=== PATIENT | female | born 1960 | race Caucasian/White ===

== ENCOUNTER 2024-07-14 07:31 | Emergency (ER) | payer MEDICARE, MEDICAID ==
[2024-07-14] MEDS ORDERED: Sodium Chloride 0.9% 10 ML Syringe FLUSH PRN (08:15)
[2024-07-14 08:27] LABS: BASOPHILS ABSOLUTE AUTO 0.03 K/uL (0.00-0.10); BASOPHILS PERCENT AUTO 0.5 % (0.1-1.3); EOSINOPHILS ABSOLUTE AUTO 0.24 K/uL (0.00-0.40); HEMATOCRIT 39.2 % (34.3-46.0); HEMOGLOBIN 14.1 g/dL (11.2-15.5); IMMATURE GRAN PERCENT AUTO 0.2 % (0.0-0.7); LYMPHOCYTES ABSOLUTE AUTO 1.08 K/uL (0.8-3.3); LYMPHOCYTES PERCENT AUTO 18.1 % (11.4-47.7); MEAN CORPUSCULAR HEMOGLOBIN 31.3 pg (31.6-35.5); MEAN CORPUSCULAR VOLUME 87.1 fL (81.4-99.0); MONOCYTES ABSOLUTE AUTO 0.58 K/uL (0.20-0.90); MONOCYTES PERCENT AUTO 9.7 % (3.3-12.6); NEUTROPHILS ABSOLUTE AUTO 4.04 K/uL (1.0-7.6); NEUTROPHILS PERCENT AUTO 67.5 % (40.0-78.1); PLATELET COUNT,PLT 222 K/uL (130-375)
[2024-07-14 08:32] LABS: IMMATURE GRAN ABSOLUTE AUTO 0.01 K/uL (0.00-0.23)
[2024-07-14] MEDS: Ondansetron 4 MG/2 ML SDV IVPUSH ONE (08:32)
[2024-07-14] MEDS: Sodium Chloride 0.9% 1,000 ML IV STA (08:32)
[2024-07-14] MEDS: fentaNYL 100 MCG/2 ML SDV IVPUSH ONE (08:33)
[2024-07-14 08:48] LABS: A/G RATIO 0.9 (1.2-2.2); ALANINE AMINOTRANSFERASE,ALT 89 U/L (12-78); ALBUMIN 3.6 g/dL (3.4-5.0); ALKALINE PHOSPHATASE 116 U/L (46-116); ASPARTATE AMNIOTRANSFERASE,AST 63 U/L (15-37); BILIRUBIN TOTAL 0.5 mg/dL (0.2-1.0); BLOOD UREA NITROGEN,BUN 12 mg/dL (7-18); CALCIUM 8.6 mg/dL (8.5-10.1); CARBON DIOXIDE,CO2 25 mmol/L (21-32); CHLORIDE,CL 100 mmol/L (100-108); CREATININE 0.8 mg/dL (0.6-1.0); EST CRCL DRUG DOSING (CG) 63.09 mL/min; ESTIMATED GFR 82 mL/min (>60); GLUCOSE RANDOM 99 mg/dL (74-106); POTASSIUM,K 3.8 mmol/L (3.6-5.2); PROTEIN TOTAL,TP 7.6 g/dL (6.4-8.2); SODIUM,NA 136 mmol/L (140-148)
[2024-07-14 08:53] LABS: ANION GAP 14.8 mmol/L (5.0-14.0)
[2024-07-14] MEDS: Sodium Chloride 0.9% 10 ML Syringe FLUSH ONE ×2 (09:25→11:44)
[2024-07-14] MEDS: Iopamidol 612 MG/ML 100 ML Bottle IV PRN (09:25)
[2024-07-14] MEDS: Sodium Chloride 0.9% 80 ML IV SCH ×2 (09:25→11:44)
[2024-07-14] MEDS: HYDROmorphone 1 MG/ML Syringe IVPUSH ONE ×2 (09:40→10:57)
[2024-07-14 10:30] LABS: APPEARANCE,URINE CLEAR (CLEAR); BILIRUBIN,URINE NEGATIVE (NEGATIVE); COLOR,URINE YELLOW (YELLOW); GLUCOSE,URINE NEGATIVE (NEGATIVE); KETONES,URINE NEGATIVE (NEGATIVE); LEUKOCYTE ESTERASE,URINE NEGATIVE (NEGATIVE); NITRITE,URINE NEGATIVE (NEGATIVE); OCCULT BLOOD,URINE NEGATIVE (NEGATIVE); PROTEIN,URINE NEGATIVE (NEGATIVE); UROBILINOGEN,URINE 0.2 EU/dL (0.2-1.0)
[2024-07-14 10:36] LABS: BACTERIA,URINE NOT SEEN; EPITHELIAL CELLS,URINE OCCASIONAL; RBC,URINE NOT SEEN (0-5); WBC,URINE NOT SEEN (0-5)
[2024-07-14] MEDS: Iopamidol 612 MG/ML 100 ML Bottle IV SCH (11:44)
== END 2024-07-14 13:13 | disposition home or self-care (01) ==
LOC: JP.ED 07:31
DX: C79.51 Secondary malignant neoplasm of bone (principal); Z79.899 Other long term (current) drug therapy
CPT/HCPCS: 36415; 71260; 74177; 80053; 81001; 83605; 83690; 85025; 96361; 96374; 96375; 96376; 99284; J1170; J2405; J3010; J3490; J7030; Q9967

== ENCOUNTER 2024-08-24 08:53 | Inpatient (IN) | payer MEDICARE, OTHER ==
[2024-08-24] MEDS: diphenhydrAMINE 50 MG/ML SDV IVPUSH ONE (09:11)
[2024-08-24] MEDS: fentaNYL 50 MCG/ML SDV IVPUSH ONE ×2 (09:14→14:27)
[2024-08-24] MEDS: droPERidol 5 MG/2 ML SDV IVPUSH ONE ×2 (09:14→17:17)
[2024-08-24] MEDS: HYDROmorphone 1 MG/ML Syringe IVPUSH PRN (15:58)
[2024-08-24] MEDS: Ondansetron 4 MG/2 ML SDV IVPUSH PRN (15:58)
[2024-08-24] MEDS ORDERED: Magnesium Hydroxide 400 MG/5 ML Susp 30 ML Cup PO PRN (16:56)
[2024-08-24] MEDS ORDERED: LORazepam 2 MG/ML SDV IVPUSH PRN (16:56)
[2024-08-24] MEDS ORDERED: Betamethasone Dipropionate 0.05% Crm 15 GM Tube TOP PRN (17:05)
[2024-08-24] MEDS: Morphine 10 MG/ML Syringe IVPUSH PRN (17:36)
[2024-08-24] MEDS: Acetaminophen/oxyCODONE 325-10 MG Tab PO PRN (17:58)
[2024-08-24] MEDS: Dexamethasone 2 MG Tab PO SCH (17:58)
[2024-08-24] MEDS: Docusate Sodium 100 MG Cap PO SCH (20:03)
[2024-08-24] MEDS: Morphine 30 MG Tab.ER PO SCH (20:03)
[2024-08-25] MEDS: Pantoprazole 40 MG Tab.CR PO SCH (07:37)
[2024-08-25] MEDS: Polyethylene Glycol 3350 Powder 17 GM Packet PO PRN (11:39)
[2024-08-26] MEDS: Ondansetron 4 MG Tab.DIS PO PRN (07:08)
[2024-08-26] MEDS: Bisacodyl 10 MG Supp RECTAL ONE (09:23)
[2024-08-26] MEDS: Acetaminophen/oxyCODONE 325-10 MG Tab PO ONE (12:58)
[2024-08-26] MEDS: Trolamine Salicylate/Aloe Vera 10% Crm 85 GM Tube TOP PRN (14:01)
[2024-08-26] MEDS: Morphine 15 MG Tab.ER PO SCH (20:56)
[2024-08-27] MEDS ORDERED: Naloxone 0.4 MG/ML SDV IVPUSH PRN (09:53)
[2024-08-27] MEDS: Morphine 10 MG/0.5 ML Oral Syringe BUCCAL ONE (10:00)
== END 2024-08-27 11:30 | disposition home or self-care (01) | DRG 543 ==
LOC: JP.ED 08:53 → EEVIPCON 16:31 → JP.MS 16:31
PROVIDERS: ADMIT Internal Medicine; ATTEND Internal Medicine
DX: M84.459A Pathological fracture, hip, unspecified, initial encounter for fracture (principal); Z79.899 Other long term (current) drug therapy; M84.552A Pathological fracture in neoplastic disease, left femur, initial encounter for fracture; C22.0 Liver cell carcinoma; C79.51 Secondary malignant neoplasm of bone; M19.90 Unspecified osteoarthritis, unspecified site; Z66 Do not resuscitate; G89.29 Other chronic pain; M54.9 Dorsalgia, unspecified; Z98.51 Tubal ligation status; Z98.890 Other specified postprocedural states; Z87.891 Personal history of nicotine dependence
CPT/HCPCS: 73502; 73700; 76377; 96374; 96375; 96376; 99285; J1200; J1790; J2405; J3010 ×2; 97162-GP; 97530-GP; 99222; 99232; 99239; A9270-GY; J1171; J2270; J8540; Q0162